=== PATIENT | female | born 1985 | race Caucasian/White ===

== ENCOUNTER 2020-11-16 14:18 | Emergency (ER) | payer BC, SELFPAY ==
--- NOTE | ~2020-11-16 | XR_ITS ---
EXAMINATION: XR ankle LT 2V DATE: 11/16/2020 17:13 INDICATION: Postreduction left ankle trimalleolar fracture. TECHNIQUE: Anteroposterior and lateral views of the left ankle were obtained. COMPARISON: 11/16/2020 2:57 PM FINDINGS: Significant improvement in the prior posterior and lateral angulation and displacement of the previou sly described trimalleolar fracture at the left ankle. There is mild residual posterior displacement and proximal migration of the posterior malleolar fracture resulting in approximately 4 mm residual s tep-off at the junction of the mid to posterior thirds of the tibial plafond. There is approximately 2-3 mm residual distraction of the medial malleolar fragment. The lateral malleolar fragment has been reduced to essentially anatomic alignment. No other fractures identified. Joint spaces are normal. F iberglas splinting. IMPRESSION: 1. Significant improvement in a now reasonable approximation of anatomic alignment post reduction and splinting of a trimalleolar fracture of the left ankle. Reviewed, dictated and finalized at location A. IMPRESSION: 1. Significant improvement in a now reasonable approximation of anatomic alignm ent post reduction and splinting of a trimalleolar fracture of the left ankle.
--- NOTE | ~2020-11-16 | XR_ITS ---
EXAMINATION: XR ankle LT min 3V DATE: 11/16/2020 15:07 INDICATION: Twisting left ankle injury with pain and deformity TECHNIQUE: Anteroposterior, oblique, mortise, and lateral views of the left ankle were obtained. COMPARISON: None. FINDINGS: Gómez type B3 trimalleolar fracture of the left ankle with this includes an oblique fracture through the distal fibula with a fracture plane exiting medially at the level of the tibiotalar joint. There is a transverse fracture across the base of the medial malleolus at the level of the joint line as we ll as a coronally oriented fracture across the posterior malleolus. The 3 malleolar fragments as well as the intervening talar dome remain in relatively anatomic alignment on some cells and are as a rel atively calyceal unit age-related approximately 20 degree laterally and 30 degrees posteriorly with a ssociated mild posterior and lateral displacement relative to the tibial plafond. This results in wid ening of the anterior tibiotalar joint space. No fractures identified in the visualized left foot. Th ere is diffuse soft tissue swelling about the left ankle. IMPRESSION: 1. Posterior and lateral angulation and displacement of a Gómez type B3 trimalleolar fracture of the left ankle. Reviewed, dictated and finalized at location A. IMPRESSION: 1. Posterior and lateral angulation and displacement of a Gómez type B3 trimall eolar fracture of the left ankle.
[2020-11-16 14:28] VITALS: BP 142/96; PULSE 88; RESP 22; TEMP 36.6; O2SAT 100
[2020-11-16] MEDS: MORPHINE SULFATE (*CRX) 4 MG/ML INJ IV PUSH (14:50)
[2020-11-16] MEDS: ONDANSETRON INJ 4 MG/2 ML VIAL IV PUSH ×2 (14:50→16:47)
--- NOTE | 2020-11-16 15:07 | PC.NURSE ---
ED COMMUNICABLE DISEASE SPECIALIST at bedside for reassessment, pt reports mild relief of L ankle pain s/p pain medication, awaiting XR results. at bedside comforting pt, call light within reach
--- NOTE | 2020-11-16 15:29 | ED.LOWEXIN ---
HPI - Extremity Injury (Lower) General Chief Complaint: Extremity Injury, Lower <JAYESH Garrison - Last Filed: 11/17/20 12:36> Stated Complaint: left ankle injury <JAYESH Garrison - Last Filed: 11/17/20 12:36> Time Seen by Provider: 11/16/20 14:32 <JAYESH Garrison - Last Filed: 11/17/20 12:36> Source: patient <JAYESH Garrison - Last Filed: 11/17/20 12:36> Mode of arrival: wheelchair <JAYESH Garrison - Last Filed: 11/17/20 12:36> Limitations: no limitations <JAYESH Garrison - Last Filed: 11/17/20 12:36> History of Present Illness HPI Narrative: Patient is a 34-year-old female who presents complaining of left ankle pain. Patient reports falling while attempting the roller skate. Visible deformity noted to left ankle. Neurovascularly intact. Patient denies significant medical history. Patient denies all other complaints at this time. Patient reports pain of 10/10. Patient denies taking over the counter medications for pain relief prior to arrival. <JAYESH Garrison - Last Filed: 11/17/20 12:36> Related Data Allergies/Adverse Reactions: Allergies Allergy/AdvReac Type Severity Reaction Status Date / Time No Known Allergies Allergy Unverified 11/16/20 14:36 <JAYESH Garrison - Last Filed: 11/17/20 12:36> Review of Systems Review of Systems: Narrative: CONSTITUTIONAL: Denies fever, chills, or sweats. EYES: Denies visual changes, redness, or discharge. ENT: Denies rhinorrhea, congestion, sore throat, or otalgia. CARDIOVASCULAR: Denies chest pain, palpitations, or edema. RESPIRATORY: Denies cough or dyspnea. GASTROINTESTINAL: Denies abdominal pain, nausea, vomiting, or diarrhea. GENITOURINARY: Denies dysuria or hematuria. SKIN: Denies rash or itching. MUSCULOSKELETAL: Left ankle pain NEUROLOGIC: Denies headache, numbness, dizziness, or weakness. PSYCHIATRIC: Denies anxiety or depression. <JAYESH Garrison - Last Filed: 11/17/20 12:36> [facility] Past Medical History Medical History: Medical History Depression <JAYESH Garrison - Last Filed: 11/17/20 12:36> Surgical History Surgical History: Surgical History H/O inguinal hernia repair H/O ovarian cystectomy History of appendectomy Hx of tonsillectomy <JAYESH Garrison - Last Filed: 11/17/20 12:36> Family History Family History: Family History (Updated 11/16/20 @ 15:32 by JAYESH Garrison) Other No significant family history <JAYESH Garrison - Last Filed: 11/17/20 12:36> Social History Social History: Social History (Updated 11/16/20 @ 15:33 by JAYESH Garrison) Smoking status: Former smoker Alcohol intake: current Alcohol use details: Occasional Substance use: never Living arrangements: with family Gender identity (if verbalized by the patient): Female <JAYESH Garrison - Last Filed: 11/17/20 12:36> Comments At the time of signature, I have reviewed and agree with nursing past medical, surgical, social, and family history unless otherwise noted. Please see nursing chart for further information. There is no relevant family history pertinent to the presenting complaint. <JAYESH Garrison - Last Filed: 11/17/20 12:36> Exam Narrative: Exam Narrative: GENERAL: Well-appearing, well-nourished, and in no acute distress. HEAD: Normocephalic, atraumatic. EYES: EOMI. No redness or drainage. Conjunctiva are normal. ENT: Mucous membranes pink and moist. . CHEST: No respiratory distress. HEART: Regular rate and rhythm. MUSCULOSKELETAL: No bony tenderness. EXTREMITIES: Visible deformity to left ankle, distal sensation intact, good pedal pulse. SKIN: Warm, dry, no rash. NEURO: No focal deficits. Alert and oriented x3. Gait steady. PSYCH: Normal affect. No signs of depression o
[2020-11-16] MEDS: LIDOCAINE HCL 2% LOCAL INJ 20 ML VIAL 10 ML INFILTRATE (16:32)
--- NOTE | 2020-11-16 16:36 | PC.NURSE ---
ED CARGO WORKER at bedside to administer lido block to L ankle, pt tolerated fairly.
[2020-11-16] MEDS: fentaNYL CITRATE INJ (*CRX) 100 MCG/2 ML VIAL 50 MCG IV PUSH ×2 (16:40→16:47)
[2020-11-16 16:42] VITALS: PULSE 79; O2SAT 100
--- NOTE | 2020-11-16 16:55 | PC.NURSE ---
LLE short-leg placed by Angi RNE and ANSELMO shepard, pt tolerated fairly. Pt to d/c with crutches, f/u with ortho tomorrow
[2020-11-16 17:18] VITALS: BP 121/71; PULSE 76; RESP 20; O2SAT 98
== END 2020-11-16 18:21 | disposition home or self-care (01) ==
PROVIDERS: Emergency Provider Nurse Practitioner
DX: S82.852A Displaced trimalleolar fracture of left lower leg, initial encounter for closed fracture (principal); V00.121A Fall from non-in-line roller-skates, initial encounter; Y93.51 Activity, roller skating (inline) and skateboarding; Z87.891 Personal history of nicotine dependence
CPT/HCPCS: 27818; 73600; 73610; 96374; 96375; 96376; 99285; J2270; J2405; J3010

== ENCOUNTER → 2021-09-27 14:49 | Outpatient (CLI) | payer BC, SELFPAY ==
--- NOTE | ~2021-09-27 | DEXA_ITS ---
Bone Density Report Name: LEONORA WAGNER Age: 35 Sex: Female Ethnicity: White Date of : 1985 Indication: postmenopausal; height loss; hysterectomy; Referring Provider: RUTHIE, THOMAS Hickman Study: Bone densitometry was performed. Exam Date: September 27, 2021 Accession number: [id number] Bone Density: Region BMD T-score Z-score Classification AP Spine (L1-L4) 0.966 -0.7 -0.7 Normal Femoral Neck (Left) 0.698 -1.4 -1.2 Osteopenia Total Hip (Left) 0.833 -0.9 -0.8 Normal Femoral Neck (Right) 0.746 -0.9 -0.7 Normal Total Hip (Right) 0.836 -0.9 -0.8 Normal Total Hip Mean 0.835 -0.9 -0.8 Normal World Health Organization criteria for BMD impression classify patients as: Normal (T-score at or above -1.0), Osteopenia (T-score between -1.0 and -2.5), or Osteoporosis (T-score at or below -2.5). 10-year Fracture Risk(1): Major Osteoporotic Fracture 2.2% Hip Fracture 0.3% Reported Risk Factors: [place] (), Neck BMD=0.698, BMI=26.3, smoking Input outside FRAX(R) limits. Adjusted to:Age=40 (1) FRAX(R) Version 3.08. Fracture probability calculated for an untreated patient. Fracture probability may be lower if the patient has received treatment. Clinical Information Provided by Patient: Smokes Has the following medical conditions: Hysterectomy Patient maximum height was 65.5 Drinks caffeinated beverages Onset of menses at age 12 Number of children 1 Missed period for more than 6 months in a row Impression: The patient has low bone mass, based on the Left Femoral Neck T-score. The patient has an estimated ten-year risk of hip fracture of 0.3% and an estimated ten-year risk of major fracture of 2.2%, based on the WHO FRAX algorithm. The patient has risk factors, including: smoking. Discussion: BONE DENSITY IS LOW AT ONE OR MORE SKELETAL SITES. This patient's lowest T-score is low at one or more skeletal sites. It meets the World Health Organization's (WHO) criteria for ?low bone mass? (T-score between -1.0 and -2.5). The patient's 10-year risk of fracture as calculated by FRAX is less than the threshold where pharmacological therapy is recommended by the National Osteoporosis Foundation (NOF). However, all treatment decisions require clinical judgment and consideration of individual patient factors, including patient preferences, comorbidities, previous drug use, risk factors not captured in the FRAX model (e.g., frailty, falls, vitamin D deficiency, increased bone turnover, interval significant decline in bone density) and possible under or overestimation of fracture risk by FRAX. The patient should follow a healthful lifestyle (good nutrition with adequate calcium and vitamin D, and appropriate weight-bearing exercise). Follow-Up: Consider repeating this study in 2 to 3 years to reassess this patient
== END ==
PROVIDERS: PCP Nurse Practitioner; Visit Provider Advanced Practice Midwife
DX: Z13.820 Encounter for screening for osteoporosis (principal); M85.852 Other specified disorders of bone density and structure, left thigh
CPT/HCPCS: 77080

== ENCOUNTER 2023-11-27 14:55 | Emergency (ER) | payer BC, SELFPAY ==
--- NOTE | 2023-11-27 15:01 | ED.URI ---
HPI - URI/Sore Throat General Chief Complaint: Upper Respiratory Infection Stated Complaint: Cold symptoms Time Seen by Provider: 11/27/23 14:59 Source: patient Mode of arrival: ambulatory Limitations: no limitations History of Present Illness HPI Narrative: Patient is a 37-year-old female who presents with 2 days of sore throat, body aches and headache. Patient has had a tonsillectomy. Denies any fever, chills, nausea, vomiting, diarrhea, congestion, cough. Related Data Home Medications Medication Instructions Recorded Confirmed venlafaxine 150 mg 150 mg PO 11/27/23 capsule,extended release 24 hr Allergies Allergy/AdvReac Type Severity Reaction Status Date / Time No Known Allergies Allergy Verified 11/27/23 15:25 Review of Systems Review of Systems: All systems reviewed & are unremarkable except as noted in HPI and below Constitutional: Constitutional: Reports body ache(s), Denies chills, Denies fatigue, Denies fever(s), Reports headache(s), Denies malaise and Denies weakness Eyes: Eyes: Denies blurry vision, Denies itchy eyes and Denies loss of vision ENT: Denies otalgia, Denies headache(s), Denies nasal congestion, Denies sinus pain and Reports sore throat Cardiovascular: Cardiovascular: Denies chest pain, Denies irregular heart rhythm and Denies dyspnea Respiratory: Respiratory: Denies cough and Denies dyspnea Gastrointestinal: Gastrointestinal: Denies abdominal pain, Denies diarrhea, Denies nausea and Denies vomiting Musculoskeletal: Musculoskeletal: Denies back pain, Denies myalgias and Denies arthralgias Integumentary/Breasts: Skin/Breast: Denies pruritus and Denies rash Neurologic: Denies headache(s), Denies loss of vision and Denies weakness Psychiatric: Psychiatric: Reports no additional psychiatric complaints Endocrine: Endocrine: Denies fatigue Allergic/Immunologic: Allergic/Immunologic: Denies itchy eyes PMFSH Past Medical History Medical History Depression Surgical History Surgical History H/O inguinal hernia repair H/O ovarian cystectomy History of appendectomy Hx of tonsillectomy Family History Family History Other No significant family history Social History Social History Smoking status: Former smoker Alcohol intake: current Alcohol use details: Occasional Substance use: never Living arrangements: with family Gender identity (if verbalized by the patient): Female Comments At time of signature, agree with nursing past medical, surgical, social and family history. There is no relevant family history pertinent to the presenting complaint. Exam Const: General: cooperative, healthy appearing, comfortable, no acute distress and well nourished Nutritional Appearance: well nourished Orientation/consciousness: patient oriented x3 Limitations: no limitations HENMT: Head: normal to inspection, normocephalic and atraumatic Ears: hearing grossly normal bilaterally, external ears normal, TM's normal bilaterally, EAC's normal and no periauricular adenopathy Face/Nose/Sinus: Normal external nose present, Normal nasal mucous membranes and turbinates present, normal facial exam, sinuses nontender and face symmetric Face and sinus: normal facial exam, sinuses nontender and face symmetric Mouth: Yes Normal oral and palatal mucosa present, Yes lip normal, Yes tongue normal, Yes Normal salivary glands and ducts present, Yes oropharynx normal and Yes moist mucous membranes Teeth and gingiva: dentition normal Throat: uvula midline, posterior oropharynx abnormal erythema and tonsils absent Eyes: General: appearance normal, both eyes and all related structures Alignment and Position: alignment normal and position normal Periorbital: periorbital findings no
[2023-11-27 15:02] VITALS: BP 138/78; PULSE 95; RESP 20; TEMP 36.7; O2SAT 100
== END 2023-11-27 16:08 | disposition home or self-care (01) ==
PROVIDERS: Emergency Provider Nurse Practitioner Family; PCP Nurse Practitioner
DX: J02.0 Streptococcal pharyngitis (principal); Z20.822 Contact with and (suspected) exposure to COVID-19; Z87.891 Personal history of nicotine dependence; F32.A Depression, unspecified
CPT/HCPCS: 87426; 87804; 87880; 99213; G0463

== ENCOUNTER 2024-07-08 12:43 | Outpatient (CLI) | payer BC, SELFPAY ==
--- NOTE | ~2024-07-08 | US_ITS ---
EXAM: PELVIC ULTRASOUND HISTORY: ABNORMAL UTERINE AND VAGINAL BLEEDING COMPARISON: None. FINDINGS: UTERUS: Measures 5.4 x 3.2 x 4.4 cm The endometrial complex measures 6 mm RIGHT OVARY: Surgically absent. LEFT OVARY: Surgically absent. No free fluid is identified within the pelvis. IMPRESSION: Unremarkable sonographic evaluation of the pelvis, as detailed above. Reviewed, dictated and finalized at location A. LIANCE ANALYST
== END 2024-07-08 12:44 | disposition home or self-care (01) ==
LOC: MICIMG 12:45
PROVIDERS: PCP Nurse Practitioner; Visit Provider Obstetrics & Gynecology
DX: N93.9 Abnormal uterine and vaginal bleeding, unspecified (principal)
CPT/HCPCS: 76830; 76856

== ENCOUNTER 2024-08-19 12:10 | Outpatient (CLI) | payer BC, SELFPAY ==
--- NOTE | ~2024-08-19 | XR_ITS ---
Left ankle Technique: AP, oblique, and lateral views were obtained. Clinical History: Pain COMPARISON: 11/16/2020 Findings: Status post prior ORIF of trimalleolar fractures, which are now healed. No acute fracture o r dislocation seen. Ankle mortise and other visualized joint spaces are preserved. Soft tissues are otherwise unremarkable. Impression: No acute abnormality. Prior ORIF of now healed trimalleolar fractures. Reviewed, dictated and finalized at location M. Impression: No acute abnormality. Prior ORIF of now healed trimalleolar fractures.
== END 2024-08-19 12:11 | disposition home or self-care (01) ==
PROVIDERS: PCP Nurse Practitioner
DX: M25.572 Pain in left ankle and joints of left foot (principal); Z98.890 Other specified postprocedural states
CPT/HCPCS: 73610